=== PATIENT | female | born 1945 | race Caucasian/White ===

== ENCOUNTER 2019-04-29 09:30 | Inpatient (IN) ==
[2019-04-22 15:43] LABS: Appearance,Urine CLEAR; Bilirubin,Urine NEG (NEG); Color,Urine YELLOW; Culture Indicated,Urine NO; Glucose,Urine (UA) NEGATIVE (NEG); Ketones,Urine NEG (NEG); Leukocyte Esterase,Urine NEG /uL (NEG); Nitrate,Urine NEG (NEG); Protein,Urine NEG (NEG); Specific Gravity,Urine 1.013 (1.000-1.035); Urine Blood NEG mg/dL (<0.03); Urobilinogen,Urine NEG (NEG)
[2019-04-22 16:26] LABS: Basophils # (Auto) 0.02 K/mcL (0.00-0.30); Basophils % (Auto) 0.3 % (0.0-2.0); Eosinophils # (Auto) 0.16 K/mcL (0.00-0.70); Eosinophils % (Auto) 2.7 % (0.0-7.0); Granulocytes % (Auto) 64.6 % (38.0-78.0); Hematocrit 37.5 % (34.1-44.9); Hemoglobin 12.8 g/dL (11.2-15.7); Lymphocytes # (Auto) 1.52 K/mcL (1.50-4.80); Lymphocytes % (Auto) 25.4 % (15.5-49.0); Mean Cell Volume 89.5 fL (80.0-100.0); Mean Corpuscular HGB Conc 34.1 g/dL (31.0-36.0); Mean Platelet Volume 13.1 fL (7.4-10.4); Monocytes # (Auto) 0.42 K/mcL (0.10-0.90); Platelet Count 179 K/mcL (140-440); RBC 4.19 M/mcL (3.59-5.38); Red Cell Distribution Width 15.5 % (11.5-14.5)
[2019-04-22 17:12] LABS: ALT/SGPT 15 U/l (0-40); AST/SGOT 23 U/l (0-37); Albumin 4.1 gm/dL (3.2-5.2); Albumin/Globulin Ratio 1.7 (1.0-2.3); Alkaline Phosphatase 52 U/L (39-117); Bilirubin,Total 0.3 mg/dL (0.0-1.0); Blood Urea Nitrogen 20 mg/dl (8-23); Calcium 9.7 mg/dl (8.6-10.4); Carbon Dioxide 29 mmol/L (22-30); Chloride 99 mmol/L (96-108); Globulin 2.4 gm/dL (2.2-3.7); Glomerular Filtration Rate 74; Glucose 64 mg/dL (70-105)
[2019-04-22 17:42] LABS: Estimated Average Glucose(eAG) 97 mg/dL
[~2019-04-29 09:30] MED LIST: CELECOXIB 200 MG CAPSULE PO SCH; ceFAZolin 2 GM in DEXTROSE 5% IN WATER 50 ML IV SCH; oxyCODONE 10 MG TAB.ER.12H PO SCH
[2019-04-29] MEDS: GABAPENTIN 300 MG CAPSULE PO SCH ×4 (10:01→20:37)
[2019-04-29] MEDS ORDERED: SCOPOLAMINE 1 PATCH PATCH TOPICAL PRN (11:00)
[2019-04-29] MEDS ORDERED: IPRATROPIUM/ALBUTEROL 3 ML AMPUL.NEB NEB PRN ×2 (11:00→13:32)
[2019-04-29] MEDS ORDERED: TRANEXAMIC ACID 1,000 MG/10 ML VIAL IV ONE ×2 (12:41→14:10)
[2019-04-29] MEDS ORDERED: GLYCOPYRROLATE 0.2 MG/ML VIAL IV ONE (12:41)
[2019-04-29] MEDS ORDERED: METOPROLOL TARTRATE 5 MG/5 ML VIAL IV ONE (12:41)
[2019-04-29] MEDS ORDERED: fentaNYL 100 MCG/2 ML VIAL IV ONE (12:41)
[2019-04-29] MEDS ORDERED: SUCCINYLCHOLINE 20 MG/ML ML IV ONE (12:41)
[2019-04-29] MEDS ORDERED: hydrALAZINE 20 MG/ML VIAL IV ONE (12:41)
[2019-04-29] MEDS ORDERED: KETAMINE 100 MG/ML ML IV ONE (12:41)
[2019-04-29] MEDS ORDERED: ONDANSETRON 4 MG/2 ML VIAL IV ONE (12:41)
[2019-04-29] MEDS ORDERED: ePHEDrine 50 MG/ML AMPUL IV ONE (12:41)
[2019-04-29] MEDS ORDERED: DEXAMETHASONE 10 MG/ML VIAL IV ONE (12:41)
[2019-04-29] MEDS ORDERED: PHENYLEPHRINE 10 MG/ML VIAL IV ONE (12:41)
[2019-04-29] MEDS ORDERED: LIDOCAINE HCL/PF 100 MG/5 ML SYRINGE IV ONE (12:41)
[2019-04-29] MEDS ORDERED: PROPOFOL 200 MG/20 ML VIAL IV ONE (12:41)
[2019-04-29] MEDS ORDERED: ATROPINE SULFATE 0.4 MG/ML VIAL IV PRN (13:37)
[2019-04-29] MEDS ORDERED: METHOCARBAMOL 1,000 MG/10 ML VIAL IV PRN (13:37)
[2019-04-29] MEDS ORDERED: diphenhydrAMINE 50 MG/ML VIAL IV PRN (13:37)
[2019-04-29] MEDS ORDERED: HYDROmorphone 2 MG/ML VIAL IV PRN (13:37)
[2019-04-29] MEDS ORDERED: LABETALOL 5 MG/ML ML IV PRN (13:37)
[2019-04-29] MEDS ORDERED: ePHEDrine 50 MG/ML AMPUL IV PRN (13:37)
[2019-04-29] MEDS ORDERED: fentaNYL 100 MCG/2 ML VIAL IV PRN (13:37)
[2019-04-29] MEDS ORDERED: ONDANSETRON 4 MG/2 ML VIAL IV PRN ×2 (13:37→14:10)
[2019-04-29] MEDS ORDERED: FLUMAZENIL 0.1 MG/ML ML IV PRN (13:37)
[2019-04-29] MEDS ORDERED: NALOXONE HCL 0.4 MG/ML VIAL IV PRN (13:37)
[2019-04-29] MEDS ORDERED: PROMETHAZINE 25 MG/ML VIAL IV PRN (13:37)
[2019-04-29] MEDS ORDERED: METOPROLOL TARTRATE 5 MG/5 ML VIAL IV PRN (13:37)
--- NOTE | 2019-04-29 14:09 | Brief Operative Note ---
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
[2019-04-29] MEDS ORDERED: KETOROLAC 15 MG/ML VIAL IV PRN (14:10)
[2019-04-29] MEDS ORDERED: oxyCODONE/APAP 5/325MG TABLET PO PRN (14:10)
[2019-04-29] MEDS ORDERED: BENZOCAINE/MENTHOL 1 LOZENGE PO PRN (14:10)
[2019-04-29] MEDS ORDERED: MAGNESIUM HYDROXIDE 30 ML ORAL.SUSP PO PRN (14:10)
[2019-04-29] MEDS ORDERED: POLYETHYLENE GLYCOL 3350 17 GM PACKET PO PRN (14:10)
[2019-04-29] MEDS ORDERED: BISACODYL 10 MG SUPP.RECT PR PRN (14:10)
[2019-04-29] MEDS ORDERED: FLEETS ADULT ENEMA PR PRN (14:10)
[2019-04-29] MEDS: BUPIVACAINE 0.5% 50 ML VIAL IJ ONE ×2 (14:33→14:45)
--- NOTE | 2019-04-29 15:22 | XRay Report ---
CLINICAL INFORMATION: Post-Op Total Shoulder COMPARISON: Preoperative x-ray 12/25/2017. FINDINGS: Total shoulder prostheses is anatomically aligned. No osseous abnormality. Soft tissue swelling seen as expected. IMPRESSION: Negative Interpreted and Authenticated by: James Borges 04/29/19
[2019-04-29] MEDS: 0.9 % SODIUM CHLORIDE 1,000 ML IV SCH (15:38)
[2019-04-29] MEDS: BACLOFEN 10 MG TABLET PO SCH ×2 (15:39→20:36)
[2019-04-29] MEDS ORDERED: MEPERIDINE 25 MG/ML SYRINGE IV PRN (16:33)
[2019-04-29] MEDS ORDERED: MEPERIDINE 50 MG/ML INJECTION ONE (17:05)
[2019-04-29] MEDS: OMEPRAZOLE 20 MG CAPSULE PO SCH (17:09)
[2019-04-29] MEDS: CARVEDILOL 6.25 MG TABLET PO SCH ×2 (17:09→20:50)
[2019-04-29] MEDS: ceFAZolin 1 GM VIAL IV SCH (20:35)
[2019-04-29] MEDS: DOCUSATE SODIUM 100 MG CAPSULE PO SCH (20:36)
[2019-04-29] MEDS: busPIRone 15 MG TABLET PO SCH (20:36)
[2019-04-29] MEDS: 0.9 % SODIUM CHLORIDE 10 ML SYRINGE IV SCH (20:52)
[2019-04-29] MEDS ORDERED: ATORVASTATIN 20 MG TABLET PO SCH (21:00)
[2019-04-29] MEDS ORDERED: SENNOSIDES 1 TABLET PO SCH (21:00)
[2019-04-29] MEDS ORDERED: DOCUSATE SODIUM 100 MG CAPSULE PO SCH (21:00)
[2019-04-29] MEDS ORDERED: traZODone HCL 100 MG TABLET PO SCH (21:00)
[2019-04-30] MEDS: 0.9 % SODIUM CHLORIDE 1,000 ML IV SCH ×2 (02:01→11:08)
[2019-04-30] MEDS: ceFAZolin 1 GM VIAL IV SCH (03:57)
[2019-04-30] MEDS: 0.9 % SODIUM CHLORIDE 10 ML SYRINGE IV SCH (05:35)
[2019-04-30] MEDS: OMEPRAZOLE 20 MG CAPSULE PO SCH (07:05)
--- NOTE | 2019-04-30 08:50 | Discharge Summary ---
Ortho Discharge - TSA - Patient Instructions Diet: Regular Diet Activity: non weight bearing Total Shoulder Protocol: Leave immobilizer in place except for bathing and ROM. Abduction pillow. Continue to wear sling until seen by physician. Codman Pendulum : These exercises use momentum produced by your body to move your shoulder joint. Bend your knees and shift your weight to your front leg, then back, allowing your arm to swing in the same directions. Using the same technique, alternately shift your weight between your right and left legs, allowing your arm to swing from side to side. These exercises are also performed in counterclockwise and clockwise circular motions. Typically these exercises are performed several times per day, for a set number repetitions or minutes, such as 20 times in a row or 5 minutes at a time. Dressing Care: Other (silver dressing leave in place for 7 days) - Follow Up Plan Follow Up Appointments: Serafin Mckeon PA-C [Physician Dietetic Technician Registered] - Disposition: Home, Self-Care Prognosis: Good Rehab Potential: Good - Orders For Discharge Additional Discharge Orders: Physical Therapy at Discharge - TSA Location: None Selected Brace/Splint Location: None Selected
[2019-04-30] MEDS ORDERED: DULoxetine 30 MG CAPSULE PO SCH (09:00)
[2019-04-30] MEDS ORDERED: ASPIRIN 81 MG TAB.CHEW PO SCH (09:00)
[2019-04-30] MEDS ORDERED: ASCORBIC ACID 500 MG TABLET PO SCH (09:00)
[2019-04-30] MEDS ORDERED: VITAMIN D3 1,000 UNIT TABLET PO SCH (09:00)
[2019-04-30] MEDS ORDERED: LISINOPRIL 20 MG TABLET PO SCH (09:00)
[2019-04-30] MEDS ORDERED: GLUCOSAMINE/CHONDROITIN SULF A 1 CAP CAPSULE PO SCH (09:00)
[2019-04-30] MEDS ORDERED: MULTIVIT,THER IRON,CA,FA & MIN 1 TABLET PO SCH (09:00)
[2019-04-30] MEDS ORDERED: DULOXETINE HCL 30 MG PO SCH (09:00)
[2019-04-30] MEDS: GABAPENTIN 300 MG CAPSULE PO SCH (09:28)
[2019-04-30] MEDS: CARVEDILOL 6.25 MG TABLET PO SCH (09:29)
[2019-04-30] MEDS: busPIRone 15 MG TABLET PO SCH (09:29)
[2019-04-30] MEDS: BACLOFEN 10 MG TABLET PO SCH (09:29)
[2019-04-30] MEDS: DOCUSATE SODIUM 100 MG CAPSULE PO SCH (09:30)
[2019-04-30] MEDS ORDERED: FLU VACC QS2019-20(6MOS UP)/PF 60 MCG/0.5 ML SYRINGE IM ONE (10:00)
--- NOTE | 2019-05-01 08:00 | Operative Note ---
DATE OF OPERATION: 04/30/2019 PREOPERATIVE DIAGNOSIS: Left shoulder severe arthritis with rotator cuff tear. POSTOPERATIVE DIAGNOSIS: Left shoulder severe arthritis with rotator cuff tear. PROCEDURE PERFORMED: Left reverse total shoulder arthroplasty placing a Tornier size 3 Aequalis Perform stem, a 0 thickness tray and a +6 polyethylene insert and a lateralized baseplate with a 2 mm offset 36 mm glenosphere. SURGEON: Jos Almanzar MD SAP BASIS ADMINISTRATOR: Toño Mckeon PA-C. This provider's expertise and technical skill were required throughout the case. The [facility] assisted with preoperative coordination, intraoperative retraction, wound closure, dressing and splint application, as well as postoperative documentation and care coordination. ANESTHESIA: General. DRAINS: None. SPECIMENS: Humeral head which was discarded. BLOOD LOSS: 250 mL COMPLICATIONS: None. POSTOPERATIVE CONDITION: Stable. INDICATIONS FOR SURGERY: This is a 74-year-old female who has had longstanding progressive worsening left shoulder pain. Radiographs showed severe glenohumeral arthritis. MRI also showed rotator cuff tear. FINDINGS AT SURGERY: Complete cartilage loss off the humeral head with collapse as well as rotator cuff tear. Post-procedure showed stable shoulder. PROCEDURE IN DETAIL: The patient had been seen preoperatively. Informed consent had been obtained after discussion of risks and benefits of surgery. Risks including, but not limited to, bleeding; infection; injury to nerves, blood vessels, other surrounding structures; anesthetic risks; incomplete or no resolution of symptoms; dislocation; fracture, possibility of needing further surgery. She understood and wished to proceed. Correct operative site was marked and then patient was taken to the operating room. General anesthesia induced. She was carefully positioned in the beach chair position and pressure points carefully padded. Left shoulder and upper extremity were then carefully prepped and draped in normal sterile fashion. Timeout was performed verifying patient name, operative site, and plan. Ioban was used to cover all skin surfaces. A standard deltopectoral incision was made with scalpel through skin and subcutaneous tissue. Hemostasis was obtained with Bovie cautery. Careful blunt dissection was taken down to the deltopectoral interval and IrriSept was irrigated. Careful blunt dissection was taken medial to the cephalic vein and deltoid and down to the subdeltoid space. Blunt finger dissection was used to develop the subdeltoid space and Pritchett deltoid retractor placed. IrriSept was irrigated. A lateral conjoint tendon was identified and blue handle retractor was placed in the knee. The biceps tendon was visualized and was very thickened and when we opened the bicipital groove it was found to have been adhesed into it. We went ahead and pulled it out of the bicipital groove and opened the rotator interval and used a curved osteotome to perform a lesser tuberosity osteotomy to detach the subscapularis. A large joint effusion was aspirated. A traction stitch was placed around the lesser tuberosity osteotomy and the shoulder was dislocated out anteriorly. Capsule was released around the inferior neck and then the cut guide was pinned into place and then a humeral head cut was made. We then used a canal finder awl and the sounders up to 3. We then broached up to a 3 and then placed a cut protector on the broach. We exposed the glenoid. The labrum was excised circumferentially and capsule was carefully released circumferentially with the Bovie on bone. We then used the drill guide to place our guidepin 10 degrees angled cephalad. We then reamed over the guidepin until we had contacted bone circumferentially and then drilled the central peg over the pin. The pin was removed and we drilled for our central peg screw and depth gauge. We then opened a lateralized baseplate with a central screw, placed and irrigated with IrriSept. We then advanced the screw until the base plate was firmly against the glenoid. We then drilled and placed superior and inferior locking screws and then anterior and posterior holes were drilled. The anterior hole was too short. We did not place a screw. However, for the posterior screw we did place a nonlocking screw. We then opened an inferior offset 36 glenosphere, carefully impacted this onto the baseplate and then the screw was tightened down until it was fully seated. We then re-exposed the proximal humerus. We trialled with a 0 thickness tray and a 6 insert. We were going to be able to just reduce the shoulder, so we went ahead and re-exposed the proximal humerus. The humeral stem trial was removed. Definitive implants were opened and assembled on the back table. The humeral canal was irrigated with IrriSept. After a minute we pulse lavaged with saline. The stem was then impacted until it was fully seated. The shoulder was then reduced, had good tension. We took the shoulder through range of motion. It was very stable. There was no visible impingement. We then irrigated with IrriSept again, after a minute pulse lavaged with saline. We made two drill holes in the bicipital groove and then #2 FiberWire [id number] were used through the drill holes and around the lesser tuberosity fragment in a [id number] stitch. We then also closed the rotator interval with a #2 FiberWire [id number]. Suture ends were then passed through the bone out into the proximal humerus, then tied over top of the bone bridge in a mattress stitch. Biceps tendon was so tendinopathic and previously scarred that I went ahead and amputated a large portion. We then closed the deltopectoral interval with a running #1 Vicryl. At this point, we visualized that the cephalic vein had been damaged during the procedure. We went ahead and irrigated with IrriSept one final time and then final saline pulse lavage, and then 2-0 Monocryl used for subcutaneous and marlys for skin. Xeroform sterile dressings were applied. Arm was placed in an abductor immobilizer and the patient was awakened, extubated, and transferred to recovery in stable condition. BJB:laura Job ID: [id number] Doc ID: [id number] Jos Almanzar MD
== END 2019-04-30 12:55 | disposition home or self-care (01) | DRG 483 ==
LOC: MEDSUR 09:45
PROVIDERS: ADMIT Orthopaedic Surgery; ATTEND Orthopaedic Surgery